=== PATIENT | male | born 1970 | race Caucasian/White ===

== ENCOUNTER → 2017-09-14 12:59 | Outpatient (CLI) | payer BC, SELFPAY ==
--- NOTE | 2017-09-14 13:06 | NVE_ITS ---
Venous Exam Indications: 729.5 Pain in limb. Pt 72" and 368lb. IMPRESSIONS 1. Superficial vein thrombosis involving the right great saphenous vein 2. No evidence of deep vein thrombosis involving the right lower extremity History: Swelling of the right lower extremity. Risk factors: Obese. Medications: Aspirin, 81 mg PO daily. Right lower extremity venous duplex evaluation. Doppler flow study including spectral analysis, color and kruger scale imaging. Location: Vascular laboratory. Patient status: Outpatient. CRITICAL FINDINGS - Reported to: Lidia - Read back and verified. - 09/14/17 - 1345 - + GS Tables: Venous flow and imaging: + + + + + Location Overall Flow properties Comments + + + + + Right common femoral Patent Normal phasicity; spontaneous; normal augmentation; compressible + + + + + Right saphenofemoral Patent Compressible junction + + + + + Right profunda Patent Compressible femoral + + + + + Right femoral Patent Normal phasicity; spontaneous; normal augmentation; compressible + + + + + Right greater Partially Diminished saphenous occluded phasicity; diminished spontaneity; diminished augmentation; partially compressible; reflux + + + + + Right popliteal Patent Normal phasicity; spontaneous; normal augmentation; compressible + + + + + Right posterior Difficult Unable to tibial study
== END ==
PROVIDERS: PCP Internal Medicine Adolescent Medicine; Visit Provider Internal Medicine Adolescent Medicine
DX: R60.0 Localized edema (principal); M79.604 Pain in right leg
CPT/HCPCS: 93971

== ENCOUNTER → 2019-08-17 08:19 | Outpatient (CLI) | payer BC, SELFPAY ==
[2019-08-17 11:43] LABS: Coronavirus 19 IgG Antibody Negative (Negative); Coronavirus 19 IgM Antibody Negative (Negative)
== END ==
PROVIDERS: Visit Provider Internal Medicine Gastroenterology
DX: Z01.818 Encounter for other preprocedural examination (principal)
CPT/HCPCS: 36415; 86328

== ENCOUNTER 2019-08-20 09:27 | Day surgery (SDC) | payer BC, SELFPAY ==
[2019-08-14 10:30] VITALS: BMI 39.4
[2019-08-20] VITALS (7 sets, daily range): BP systolic 138–160; BP diastolic 60–91; PULSE 63–90; RESP 18–20; TEMP 36.6–36.7; O2SAT 95–98
--- NOTE | 2019-08-20 11:43 | HMH.PROC ---
[facility] Procedure Note Procedure Note:: Colonoscopy Procedure Report: Colonoscopy Endoscopist: Anjel Cabrera II, MD Referring physician: David Rhodes M.D. Date of Procedure: August 20, 2019 Equipment: Olympus 180 variable stiffness pediatric colonoscope Sedation: MAC sedation Indication: Mr. Tuttle is a 49-year-old gentleman who is here for high risk screening colonoscopy. The patient's father had colon cancer at the age of 52. This is the patient's first colonoscopy. He reports no abdominal pain, weight loss, change in his bowel habits or rectal bleeding. Procedure: Prior to the procedure, a history and physical exam was performed, and patient's medications and allergies were reviewed. The risks, benefits and alternatives of the sedation and procedure were discussed with the patient. All questions were answered and informed consent was obtained. The patient was brought to the procedure room. Patient identification and proposed procedure were verified by the physician and the nurse. The patient was placed in a left lateral decubitus position and the scope was passed under direct vision. Throughout the procedure, the patient's blood pressure, pulse, and oxygen saturations were monitored continuously. The colonoscopy was accomplished without difficulty. The patient tolerated the procedure well. Findings: On digital rectal examination there was normal rectal tone. There were no external hemorrhoids. The colonoscope was introduced through the anal canal to the rectum and advanced to the cecum. The ileocecal valve and appendiceal orifice were identified. The scope was advanced a short distance into the ileum which appeared grossly normal. The scope was then withdrawn into the colon. The cecum, ascending, transverse, descending, sigmoid and rectum were grossly normal. There were no mucosal abnormalities identified. Upon retroflexion within the rectum there were grade 1-2 internal hemorrhoids.The preparation was excellent throughout with Kiefer Preparation Score of 9. The cecal time was 10 minutes. Impression: 1. Normal colonoscopy with intubation of the terminal ileum 2. Grade 1-2 internal hemorrhoids Plan: Based upon the patient's family history, I would recommend repeat screening (high risk) in 5 years. I would encourage bulk fiber supplementation on a long-term daily maintenance basis.
--- NOTE | 2019-08-20 11:59 | HMH.ANESCL ---
[facility] Anesthesia Checklist - Structural Data Admitted From: Home Planned Operative Procedure/s: colonoscopy - Anesthesia Plan Anesthesia Risk discussed: Yes Anesthesia Plan: Verified ASA Class: III Anesthesia Type: MAC [facility] History Medical History: Denies:: Cancer, Diabetes Mellitus Type 1, Diabetes Mellitus Type 2, Internal Pacemaker, MRSA, Seizures *Have you ever received a pneumonia vaccine?: No *Have you received a flu vaccine this season?: No Anesthesia experience/problems:: none Other Surgeries: No: Pacemaker Amputation: No Fractures: Yes (DESIREE IN RIGHT LEG AND FEET) - *Social History Educational Level: Completed Graduate School Smoking Status: Never smoker Alcohol Intake: never Substance Use Type: denies use *Occupational Status:: employed Housing: house Household Members: spouse *Travel in the last 8 weeks: None Family Hx:: No significant family history
== END 2019-08-20 12:32 | disposition home or self-care (01) ==
LOC: OUTP 09:29
PROVIDERS: PCP Internal Medicine Adolescent Medicine; Visit Provider Internal Medicine Gastroenterology
PROC: 0DJD8ZZ Inspection of Lower Intestinal Tract, Via Natural or Artificial Opening Endoscopic (ICD-10-PCS; CPT 45378; principal; 2019-08-20 10:30)
DX: Z12.11 Encounter for screening for malignant neoplasm of colon (principal); Z80.0 Family history of malignant neoplasm of digestive organs; K64.0 First degree hemorrhoids
CPT/HCPCS: 45378

== ENCOUNTER → 2019-12-17 08:24 | Outpatient (CLI) | payer BC, SELFPAY ==
--- NOTE | 2019-12-17 08:29 | XR_ITS ---
PROCEDURE: XR CHEST PORTABLE CLINICAL HISTORY: COVID COVID 19, cough, fever COMPARISON: No exams were available for comparison FINDINGS: The cardiomediastinal silhouette and pulmonary vascularity are within normal limits. There is patchy ground-glass density in the left midlung and right lower lobe suspicious for atypical/COVID 19 pneumonia. There is there is an 11 mm nodular opacity in the left midlung which is indeterminate. No acute bony findings. No effusions. IMPRESSION: 1. Patchy bilateral ground-glass attenuation suspicious for pneumonia which could represent atypical/COVID 19 pneumonia 2. Indeterminate 11 mm left midlung nodule. Nonemergent chest CT suggested for further evaluation. Dictated by: Junior Jean MD 12/17/2019 08:48 Junior Jean MD in [place] 12/17/2019 08:48
[2019-12-17 09:33] LABS: Basophils % 0.5 % (0.1-2.0); Eosinophils % 0.2 % (0.1-12.0); Hematocrit 43.6 % (42.0-52.0); Hemoglobin 16.5 g/dL (14.1-18.0); Lymphocytes # 1.3 K/mm3 (0.7-4.5); Lymphocytes % 22.8 % (10-50); Mean Corpuscular HGB Conc 37.7 g/dL (31.8-35.4); Mean Corpuscular Hemoglobin 34.6 pg (27.0-31.2); Mean Corpuscular Volume 91.7 fl (80-94); Mean Platelet Volume 7.8 fl (7.4-10.4); Monocytes # 0.4 K/mm3 (0.1-1.0); Monocytes % 6.6 % (1.7-9.3); Neutrophils % 69.7 % (37.0-80.0); Platelet Count 149 K/mm3 (142-424); Red Blood Count 4.76 M/mm3 (4.60-6.20); Red Cell Distribution Width 13.4 % (11.5-17.5); White Blood Count 5.8 K/mm3 (4.8-10.8)
[2019-12-17 09:36] LABS: Chloride 103 mmol/L (98-107); Potassium 4.5 mmoL/L (3.5-5.1); Sodium 138 mmol/L (136-145)
[2019-12-17 09:39] LABS: Anion Gap 13.5 mEq/L (5-15); Blood Urea Nitrogen 10 mg/dl (9-20); Calcium 9.5 mg/dl (8.4-10.2); Carbon Dioxide 26 mmol/L (22.0-30.0); Estimated Glomerular Filt Rate 90 ml/min (>60); GFR (African American) 109 ML/MIN (>60); Glucose 121 mg/dl (74-100)
== END ==
PROVIDERS: PCP Internal Medicine Adolescent Medicine; Visit Provider Internal Medicine Adolescent Medicine
DX: Z20.828 Contact with and (suspected) exposure to other viral communicable diseases (principal); R50.9 Fever, unspecified; R05 Cough
CPT/HCPCS: 36415; 71045; 80048; 85025; U0003